=== PATIENT | male | born 1955 | race Caucasian/White ===

== ENCOUNTER 2016-05-30 06:31 | Day surgery (SDC) | payer OTHER ==
[~2016-05-30 06:31] MED LIST: Lactated Ringers 1,000 ML IV SCH
[2016-05-30] MEDS ORDERED: Propofol 200 MG/20 ML SDV ONE ×2 (07:41→08:02)
[2016-05-30] MEDS ORDERED: fentaNYL 100 MCG/2 ML SDV ONE (07:41)
[2016-05-30 08:55] VITALS: BP 130/73
--- NOTE | 2016-05-30 13:59 | OR ---
PREOPERATIVE DIAGNOSIS: Family history of colon cancer. POSTOPERATIVE DIAGNOSIS: Normal colonoscopic exam. PROCEDURE PROPOSED: Total flexible colonoscopy. PROCEDURE DONE: Total flexible colonoscopy. INDICATION: This is a 60-year-old gentleman who comes in for a colonic surveillance due to a family history of colon cancer. Multiple family members have had colon cancers. He has had 2 prior colonoscopies and may have had one tiny polyp on one of them. He denies any symptomatology. TECHNIQUE: The patient was brought to the endoscopy suite, placed in left lateral decubitus position. He was sedated with propofol per [employer]. The flexible video colonoscope was then passed transanally and under visualization advanced to the cecum. Examination revealed normal ascending, transverse, descending, sigmoid, and rectal colon and there was no evidence of any polyps, diverticulosis, colitis ,or any other abnormalities. He did have quite a bit of green liquid fluid in the colon and I suction out about 300 mL throughout the procedure. A thorough examination was obtained. He tolerated the procedure very well. IMPRESSION: 1. Normal colonoscopic exam. 2. Family history of colon cancer. PLAN: He should continue colonic surveillance every 5 years hereafter. SCM: 05/30/2016 08:21:13 MODL: 05/30/2016 13:48:15 /[id number]
== END 2016-05-30 10:18 | disposition home or self-care (01) ==
LOC: VM.SDS 06:31
PROVIDERS: ATTEND Surgery
DX: Z80.0 Family history of malignant neoplasm of digestive organs (principal); E11.40 Type 2 diabetes mellitus with diabetic neuropathy, unspecified; I10 Essential (primary) hypertension; E78.5 Hyperlipidemia, unspecified; Z88.8 Allergy status to other drugs, medicaments and biological substances; Z79.82 Long term (current) use of aspirin; Z79.84 Long term (current) use of oral hypoglycemic drugs; Z79.899 Other long term (current) drug therapy; Z98.890 Other specified postprocedural states; Z87.891 Personal history of nicotine dependence
CPT/HCPCS: 45378; 82962; J2704; J3010; J7120

== ENCOUNTER 2021-07-07 07:00 | Day surgery (SDC) | payer MEDICARE, OTHER ==
[2021-07-07] MEDS: Lactated Ringers 1,000 ML IV SCH (07:17)
[2021-07-07] MEDS ORDERED: Propofol 200 MG/20 ML SDV ONE ×3 (08:05→09:37)
[2021-07-07] MEDS ORDERED: fentaNYL 100 MCG/2 ML SDV ONE (08:05)
[2021-07-07 10:20] VITALS: BP 124/79; PULSE 78
== END 2021-07-07 11:00 | disposition home or self-care (01) ==
LOC: VM.SDS 07:00
PROVIDERS: ATTEND Family Medicine
DX: Z12.11 Encounter for screening for malignant neoplasm of colon (principal); D12.0 Benign neoplasm of cecum; E78.5 Hyperlipidemia, unspecified; E11.51 Type 2 diabetes mellitus with diabetic peripheral angiopathy without gangrene; I10 Essential (primary) hypertension; G14 Postpolio syndrome; E83.52 Hypercalcemia; E11.621 Type 2 diabetes mellitus with foot ulcer; L97.421 Non-pressure chronic ulcer of left heel and midfoot limited to breakdown of skin; E11.42 Type 2 diabetes mellitus with diabetic polyneuropathy; E66.9 Obesity, unspecified; Z68.31 Body mass index [BMI] 31.0-31.9, adult; Z80.0 Family history of malignant neoplasm of digestive organs; Z79.899 Other long term (current) drug therapy; Z79.4 Long term (current) use of insulin; Z79.84 Long term (current) use of oral hypoglycemic drugs; Z79.82 Long term (current) use of aspirin; Z98.890 Other specified postprocedural states; Z87.891 Personal history of nicotine dependence
CPT/HCPCS: 00812; 82947; 88305; J2704; J3010; J7120

== ENCOUNTER 2022-06-08 07:21 | Day surgery (SDC) | payer MEDICARE, OTHER ==
[~2022-06-08 07:21] MED LIST changes: +Propofol 200 MG/20 ML SDV ONE; +fentaNYL 100 MCG/2 ML SDV ONE
[2022-06-08 10:16] VITALS: BP 142/79; PULSE 62
== END 2022-06-08 10:55 | disposition home or self-care (01) ==
LOC: VM.SDS 07:21
PROVIDERS: ATTEND Family Medicine
DX: K29.70 Gastritis, unspecified, without bleeding (principal); K21.9 Gastro-esophageal reflux disease without esophagitis; K29.80 Duodenitis without bleeding; K31.89 Other diseases of stomach and duodenum; K44.9 Diaphragmatic hernia without obstruction or gangrene; I73.9 Peripheral vascular disease, unspecified; I10 Essential (primary) hypertension; E78.5 Hyperlipidemia, unspecified; E11.51 Type 2 diabetes mellitus with diabetic peripheral angiopathy without gangrene; E11.42 Type 2 diabetes mellitus with diabetic polyneuropathy; G47.33 Obstructive sleep apnea (adult) (pediatric); E04.1 Nontoxic single thyroid nodule; N52.9 Male erectile dysfunction, unspecified; Z80.0 Family history of malignant neoplasm of digestive organs; Z79.899 Other long term (current) drug therapy; Z79.4 Long term (current) use of insulin; Z79.84 Long term (current) use of oral hypoglycemic drugs; Z87.891 Personal history of nicotine dependence
CPT/HCPCS: 00731; 82947; 88305; J2704; J3010; J7120